=== PATIENT | female | born 1975 | race Caucasian/White ===

== ENCOUNTER 2016-10-05 15:54 | Emergency (ER) | payer OTHER ==
[~2016-10-05 15:54] MED LIST: ADVAIR 1001 DISK W/D PO; AEROBID7 GM; ALBUTEROL17 GM INH; BACTRIM DS TABL1 TA1 PO; CIPRO PO; CLINDAMYCIN HC300 MG PO; DIAZEPAM PO; EC-NAPROSYN500 MG PO; FLEXERIL PO; GEODAN PO; KEFLEX500 MG PO; LEVAQUIN750 M1; LORTAB 5/500 TA1 TA1 PO; LORTAB 7.5-5001 TAB PO; PATIENT'S PHARMACY; PHENERGAN PO; PREDNISONE PO; SEROQUEL PO; VICODIN 5/1 TAB 5/50 PO; VICODIN 5/500 T1 TAB PO; VICODIN PO; ZITHROMAX PO; ZYPREXA PO
== END 2016-10-05 16:15 | disposition home or self-care (01) ==
LOC: CED 15:54 → CFTX 15:54
DX: S40.862A Insect bite (nonvenomous) of left upper arm, initial encounter (principal); S30.861A Insect bite (nonvenomous) of abdominal wall, initial encounter; L03.114 Cellulitis of left upper limb; I10 Essential (primary) hypertension; E11.9 Type 2 diabetes mellitus without complications; F17.210 Nicotine dependence, cigarettes, uncomplicated; Z23 Encounter for immunization; Z98.51 Tubal ligation status; Z98.890 Other specified postprocedural states; Z88.5 Allergy status to narcotic agent; Z88.1 Allergy status to other antibiotic agents; W57.XXXA Bitten or stung by nonvenomous insect and other nonvenomous arthropods, initial encounter; Y92.009 Unspecified place in unspecified non-institutional (private) residence as the place of occurrence of the external cause
CPT/HCPCS: 90471; 90715; 99283